=== PATIENT | male | born 1995 | race Hispanic/Latino ===

== ENCOUNTER 2020-06-24 10:08 | Emergency (ER) | payer BC, OTHER ==
[2020-06-24] MEDS ORDERED: Silver Sulfadiazine 50 GM TUBE ONE (11:05)
== END 2020-06-24 11:25 | disposition home or self-care (01) ==
LOC: MADERS 10:08
DX: S80.12XA Contusion of left lower leg, initial encounter (principal); T22.012A Burn of unspecified degree of left forearm, initial encounter; T22.011A Burn of unspecified degree of right forearm, initial encounter; T31.0 Burns involving less than 10% of body surface; F17.210 Nicotine dependence, cigarettes, uncomplicated; F17.220 Nicotine dependence, chewing tobacco, uncomplicated; V49.40XA Driver injured in collision with unspecified motor vehicles in traffic accident, initial encounter